=== PATIENT | female | born 1995 | race Caucasian/White ===

== ENCOUNTER 2017-10-25 09:43 | Emergency (ER) | payer OTHER ==
[2017-10-25 10:15] VITALS: BMI 22.1
--- NOTE | 2017-10-25 10:36 | PDOC ---
History of Present Illness - General Chief Complaint: Chest Pain Stated Complaint: ELEVATED BP, SOB Time Seen by Provider: 10/25/17 10:28 - History of Present Illness Initial Comments: 10/25/17 11:06 22 yo F with no significant pmh who presents with chest pain. Pt. reports substernal chest tightness beginning at 11am while at work. Pain has been slightly improving. No aggravating or inciting factors. Denies N/V, fevers/ chills, lightheadedness, weakness, vision change, abdominal pain, flank pain, diarrhea, constipation. States that she has history h/o with preganncy (2012) Patient is . BP checked at [employer] [employer] ( [facility]) this AM and elevated 175/90. Patient on Norelgestromin/ethinyl estradiol patch. Was told that HTN may be due to oral contraception patch started on (07/2017). Does not have PCP. Alcohol 2-3 cups/week, hookah 3/week. Denies marijuanna or other illicit drug use. Past History - Past Medical History Allergies/Adverse Reactions: Allergies Allergy/AdvReac Type Severity Reaction Status Date / Time No Known Allergies Allergy Verified 10/25/17 10:11 Home Medications: Ambulatory Orders Norelgestromin/Ethin.estradiol [Xulane Patch] 1 each TD ASDIR 10/25/17 COPD: No - Immunization History Immunization Up to Date: Yes - Suicide/Smoking/Psychosocial Hx Smoking Status: No Smoking History: Never smoked Have you smoked in the past 12 months: No Number of Cigarettes Smoked Daily: 0 Information on smoking cessation initiated: No Hx Alcohol Use: No Drug/Substance Use Hx: No Substance Use Type: None Review of Systems - Review of Systems Comments:: 10/25/17 10:35 GENERAL/CONSTITUTIONAL: No fever or chills. No weakness. HEAD, EYES, EARS, NOSE AND THROAT: No change in vision. No ear pain or discharge. No sore throat.- CARDIOVASCULAR:+ chest pain. No shortness of breath RESPIRATORY: No cough, wheezing, or hemoptysis. GASTROINTESTINAL: No nausea, vomiting, diarrhea or constipation. GENITOURINARY: No dysuria, frequency, or change in urination. MUSCULOSKELETAL: No joint or muscle swelling or pain. No neck or back pain. SKIN: No rash NEUROLOGIC: No headache, vertigo, loss of consciousness, or change in strength/ sensation. ENDOCRINE: No increased thirst. No abnormal weight change HEMATOLOGIC/LYMPHATIC: No anemia, easy bleeding, or history of blood clots. ALLERGIC/IMMUNOLOGIC: No hives or skin allergy. *Physical Exam - Vital Signs Last Vital Signs Temp Pulse Resp BP Pulse Ox 97.1 F L 74 18 153/103 100 10/25/17 10:12 10/25/17 10:12 10/25/17 10:12 10/25/17 10:12 10/25/17 10:12 - Physical Exam Comments: 10/25/17 10:35 GENERAL: Awake, alert, and fully oriented, in no acute distress HEAD: No signs of trauma, normocephalic, atraumatic EYES: PERRLA, EOMI, sclera anicteric, conjunctiva clear ENT: Hearing grossly normal, nares patent, oropharynx clear without exudates. Moist mucosa NECK: Normal ROM, no JVD, or masses LUNGS: No distress, speaks full sentences, clear to auscultation bilaterally HEART: Regular rate and rhythm, normal S1 and S2, no murmurs, rubs or gallops, peripheral pulses normal and equal bilaterally. ABDOMEN: Soft, substernal ttp, normoactive bowel sounds. No guarding, no rebound. No masses. Neg CVA ttp. EXTREMITIES : Normal inspection, Normal range of motion, no edema. No clubbing or cyanosis. NEUROLOGICAL: Cranial nerves II through XII grossly intact. Normal speech, normal gait, no focal sensorimotor deficits SKIN: Warm, Dry, normal turgor, no rashes or lesions noted. 10/25/17 11:46 Heart Score/ECG Review - History History: Slightly suspicious - Electrocardiogram EKG: Normal - Age Age: </= 45 - ECG Intrepretation Rhythm: Regular Rhythm - Redbird Redbird: Normal - QRS Poor R Wave Progression: No Q Wave Present: No - ST and T Early Repolarization: No Non Specific ST-T Wave changes: No Flattened T Waves: No Prolonged Q-T Interval: No - ECG Impressions Normal ECG: Yes Non-specific ST Elevation: No Ischemic Changes: No Bradycardia: No Torsades akbar Pointes: No WPW: No ED Treatment Course - LABORATORY CBC & Chemistry Diagram: 10/25/17 11:20 10/25/17 11:20 Medical Decision Making - Medical Decision Making 10/25/17 10:42 22 yo F with no significant pmh who presents with substernal chest tightness beginning at 11am while at work. Pain been slightly improving. No aggravating or inciting factors. Denies N/V, fevers/chills, lightheadedness, weakness, vision change, abdominal pain, flank pain, diarrhea, constipation. States that she has history h/o with preganncy (2012) Patient is . BP checked at [facility]/ [employer] ( [facility]) this AM and elevated 175/95. Patient on Norelgestromin/ ethinyl estradiol patch. Was told that HTN may be due to oral contraception patch started on (07/2017). Physical exam with substernal ttp. Alcohol 2-3 cups/ week, hookah 3/week. Denies marijuanna or other illicit drug use. Patient with no physical s/s of hypertensive emergency. Low suspicion for end organ damage. Although unlikely will attempt to r/o PE and obtain d-dimer d/t low risk Weils in setting of contraception use. ED Course: EKG: NSR with absent KILLIAN, STD, or TWI. CBC, CMP, Cardiac Profile, Trop, UA, Lipase 10/25/17 11:57 CBC: Unremarkable 10/25/17 12:32 CMP: Unremarkable Trop: Neg 10/25/17 13:13 TSH: Neg 10/25/17 15:54 CXR: Unremarkable. D-Dimer: 601 10/25/17 18:12 CTA: No evidence of PE Patient stable and ready for discharge with return precautions. Instructed to remove contraceptive patch. Advised to f/u with PCP. 10/25/17 15:55 *DC/Admit/Observation/Transfer Diagnosis at time of Disposition: Substernal chest pain - Discharge Dispostion Disposition: HOME Condition at time of disposition: Stable Admit: No - Referrals Referrals: Jing Fields MD [Staff Physician] - - Patient Instructions Printed Discharge Instructions: DI for Atypical Chest Pain Additional Instructions: Please return to the emergency department with any new or worsening symptoms or concerns. Please follow up with primary care physician within one week for better blood pressure control. - Post Discharge Activity - Attestations Physician Attestion: 10/25/17 14:54 I attest to the information in
[2017-10-25 11:32] LABS: BASOPHIL 0.6 % (0-2.0); EOSINOPHIL 0.6 % (0-4.5); MCH 29.2 pg (25.7-33.7); MCHC 33.1 g/dl (32.0-36.0); MEAN CELL VOLUME 88.1 fl (80-96); NEUTROPHILS 70.1 % (42.8-82.8); PLATELET COUNT 320 K/MM3 (134-434); RDW 13.2 % (11.6-15.6); WHITE BLOOD COUNT 4.7 K/mm3 (4.0-10.0)
[2017-10-25 12:00] LABS: ALBUMIN 3.8 g/dl (3.4-5.0); ANION GAP 9 (8-16); CALCIUM 8.6 mg/dL (8.5-10.1); CO2 25 mmol/L (21-32); CREATININE 0.8 mg/dL (0.55-1.02); GLUCOSE,RANDOM 81 mg/dL (74-106); SGPT/ALT 17 U/L (12-78)
[2017-10-25 12:02] LABS: INR 1.18 (0.82-1.09); PROTHROMBIN TIME (PATIENT) 13.3 SEC (9.98-11.88)
[2017-10-25 12:04] LABS: ALK PHOS 57 U/L (45-117); BILIRUBIN,TOTAL 0.8 mg/dL (0.2-1.0); CPK 117 IU/L (26-192); TOT PROT 7.8 g/dl (6.4-8.2); TROPONIN I < 0.02 ng/ml (0.00-0.05)
[2017-10-25 12:09] LABS: SGOT/AST 17 U/L (15-37)
--- NOTE | 2017-10-25 12:16 | EKG ---
Test Reason : Blood Pressure : / mmHG Vent. Rate : 083 BPM Atrial Rate : 083 BPM P-R Int : 140 ms QRS Dur : 080 ms QT Int : 378 ms P-R-T Axes : 029 055 022 degrees QTc Int : 444 ms NORMAL SINUS RHYTHM SEPTAL INFARCT , AGE UNDETERMINED ABNORMAL ECG NO PREVIOUS ECGS AVAILABLE Confirmed by YOLANDA SMITH MD ([id number]) on 10/25/2017 12:16:01 PM Referred By: Confirmed By:YOLANDA SMITH MD
[2017-10-25 12:19] LABS: PH,URINE 6.5 (5.0-8.0); URINE APPEARANCE CLEAR; URINE BILIRUBIN NEGATIVE (NEGATIVE); URINE BLOOD NEGATIVE (NEGATIVE); URINE GLUCOSE (UA) NEGATIVE (NEGATIVE); URINE KETONE 2+ (NEGATIVE); URINE NITRITE NEGATIVE (NEGATIVE)
[2017-10-25 12:46] LABS: URINE COLOR YELLOW; URINE PROTEIN 1+ (NEGATIVE)
[2017-10-25 13:00] LABS: THYROID STIMULATING HORMONE 1.03 uIU/ml (0.358-3.74)
[2017-10-25 13:23] LABS: URINE HYALINE CAST 1 /lpf; URINE MUCUS FEW; URINE RBC 1 /hpf (0-3); URINE WBC 3 /hpf (3-5)
--- NOTE | 2017-10-25 13:59 | PDOC ---
Attending Attestation - Resident Resident Name: Damian Conner - ED Attending Attestation I have performed the following: I have examined & evaluated the patient, The case was reviewed & discussed with the resident, I agree w/resident's findings & plan, Exceptions are as noted - HPI HPI: 10/25/17 13:54 Healthy 22-year-old female with no significant past medical history presents now for evaluation in the setting of elevated blood pressure and chest pain intermittently for 1-2 days. No known history of elevated blood pressure, does report on occasion that she gets dyspnea with exertion, but no foreign exchange dealer the last year and denies any recent PE risk factors or symptoms of DVT. Positive history of early hypertension in her family, no history of sudden cardiac . Never had an echo or stress test for any reason. - Physicial Exam PE: 10/25/17 13:56 Blood pressure 160 systolic, heart rate normal. Normal exam, no audible murmur No edema or calf tenderness - Medical Decision Making 10/25/17 13:57 Patient seen and evaluated with the resident. I agree with the overall evaluation, assessment, and management with the following summary of visit: 22-year-old female presents with newly elevated blood pressures and otherwise atypical chest pain intermittently since yesterday. Patient is symptom-free at this time, blood pressure is 160 systolic. Patient exertional symptoms have been ongoing for about a year, are stable and unchanged. EKG shows possible septal Q waves and questionable LVH, no acute ischemic changes. We'll perform a complete workup to rule out evidence of end organ injury or heart strain. If above is within normal limits and the patient remains asymptomatic, she was given a referral to a [facility] physician and will arrange follow-up within the next 48 hours. Check d-dimer and chest x-ray Reassess and dispo accordingly 10/25/17 15:28 labs wnl, trop negative. cxr normal but ddimer positive. cta chest to r/o PE or dissection. BP otherwise stable Heart Score/ECG Review #1 General ECG Interpretation: Sinus Rhythm, Normal Rate, Normal Intervals (? LVH) , No acute ischemic changes (septal q waves)
[2017-10-25] MEDS ORDERED: SODIUM CHLORIDE 1,000 ML IV ONE (15:27)
[2017-10-25 18:25] VITALS: BP 143/82; PULSE 87; TEMP 97.5
[2017-10-25 18:58] LABS: URINE LEUK ESTERASE Negative (NEGATIVE)
== END 2017-10-25 18:30 | disposition home or self-care (01) ==
LOC: JER 09:43
PROC: 3E0337Z Introduction of Electrolytic and Water Balance Substance into Peripheral Vein, Percutaneous Approach (ICD-10-PCS; principal; 2017-10-25)
DX: R07.89 Other chest pain (principal); I10 Essential (primary) hypertension
CPT/HCPCS: 36415; 71020-TC; 71275-TC; 80053; 81003; 81015; 82550; 83690; 84443; 84484; 84703; 85025; 85379; 85610; 93005; 93010; 96360; 99285-25

== ENCOUNTER 2018-09-13 16:55 | Emergency (ER) | payer SELFPAY ==
[2018-09-13 17:07] VITALS: BMI 24.7
--- NOTE | 2018-09-13 17:07 | PDOC ---
Rapid Medical Evaluation Time Seen by Provider: 09/13/18 17:03 Medical Evaluation: Allergies Allergy/AdvReac Type Severity Reaction Status Date / Time No Known Allergies Allergy Verified 09/13/18 17:03 09/13/18 17:03 Pt c/o:this morning excessive crying and wanted to hurt herself ( no plan), no hx of depression, continues to feel sad, here with grandmother, son , and 2 week old baby, went to heart nurse and referred here for eval Pt on brief exam: + eye contact, states no feeling/thoughts of hurting herself now Pt ordered for: psych eval pt to proceed to the ED: Discharge Disposition - Diagnosis Post- depression - Referrals - Patient Instructions - Post Discharge Activity
--- NOTE | 2018-09-13 17:52 | PDOC ---
History of Present Illness - General Chief Complaint: Suicidal Stated Complaint: EVALUATION Time Seen by Provider: 09/13/18 17:03 - History of Present Illness Initial Comments: 23 year 3 week post old previously healthy female presenting because of near attempt at self harm today. Patient states that she has been having a rough time with her living situation and has been under a lot of stress at home since the of her child. Because of these stressors she has felt very sad today in particular and was thinking about hurting herself with a knife. Patient admits that she had a knife in her room and wanted to cut her arm without a clear goal. Her baby's father came into the room and grabbed the knife from her then called EMS to have her evaluated. Patient currently states that she is fine but when asked if she would attempt this again, she stats she is not sure but that it is a possibility. Denies any previous attempt or previous psychiatric diagnoses. Denies HI, AH< or VH. Denies any other sick symptoms. Her living situation is tenuous because her parents are being evicted and she needs to find alternate housing and her two children. Also the father of her is not very involved with the care of the child. There has been a lot of arguing and verbal fighting between all of these mentioned parties. 09/13/18 23:12 Past History - Past Medical History Allergies/Adverse Reactions: Allergies Allergy/AdvReac Type Severity Reaction Status Date / Time No Known Allergies Allergy Verified 09/13/18 17:03 Home Medications: Ambulatory Orders NK [No Known Home Medication] 09/13/18 COPD: No - Immunization History Immunization Up to Date: Yes - Suicide/Smoking/Psychosocial Hx Smoking Status: No Smoking History: Never smoked Have you smoked in the past 12 months: No Number of Cigarettes Smoked Daily: 0 Hx Alcohol Use: No Drug/Substance Use Hx: No Substance Use Type: None Review of Systems - Review of Systems Constitutional: No: Chills, Diaphoresis, Fever HEENTM: No: Eye Pain, Blurred Vision Respiratory: No: Cough, Shortness of Breath Cardiac (ROS): No: Chest Pain, Lightheadedness, Syncope, Chest Tightness ABD/GI: No: Diarrhea, Nausea, Poor Appetite, Vomiting : No: Burning, Dysuria, Discharge Musculoskeletal: No: Back Pain, Joint Pain, Joint Swelling Integumentary: No: Bruising, Erythema, Flushing, Lesions Neurological: No: Headache, Numbness, Seizure Psychiatric: No: Anxiety, Depression Endocrine: No: Excessive Sweating, Flushing, Increased Thirst Hematologic/Lymphatic: No: Anemia, Blood Clots, Easy Bleeding *Physical Exam - Vital Signs Last Vital Signs Temp Pulse Resp BP Pulse Ox 98.2 F 86 14 137/93 100 09/13/18 17:04 09/13/18 17:04 09/13/18 17:04 09/13/18 17:04 09/13/18 17:04 - Physical Exam General Appearance: Yes: Nourished, Appropriately Dressed. No: Apparent Distress HEENT: positive: EOMI, BETY, Normal ENT Inspection, Normal Voice Neck: positive: Trachea midline, Normal Thyroid, Supple. negative: Tender, Rigid Respiratory/Chest: positive: Lungs Clear, Normal Breath Sounds. negative: Chest Tender, Respiratory Distress, Accessory Muscle Use Cardiovascular: positive: Regular Rhythm, Regular Rate Gastrointestinal/Abdominal: positive: Normal Bowel Sounds, Flat, Soft. negative : Tender Lymphatic: negative: Adenopathy, Tenderness Musculoskeletal: positive: Normal Inspection. negative: Decreased Range of Motion Extremity: positive: Normal Capillary Refill, Normal Inspection, Normal Range of Motion. negative: Tender Integumentary: positive: Normal Color, Dry, Warm Neurologic: positive: ton cylinder inspector II-XII NML intact, Fully Oriented, Alert, Normal Mood/ Affect, Normal Response, Motor Strength 5/5 ED Treatment Course - LABORATORY CBC & Chemistry Diagram: 09/13/18 17:19 09/13/18 17:19 Medical Decision Making - Medical Decision Making 23 year old female with what appears to be a plan with near attempt at self harm without clear goal. Patient is within the time frame for depression and her admitted behavior is concerning for suicidality. Patient needs to be evaluated by psychiatry for her self harm behavior. Spoke to patient and her family at length including her father, mother, and baby's father. They eventually found care for her two children and her mother will come to visit her and bring Kenny. Denies current AH/VH/ HI. Spoke to Dr. Calderon at approximately 18:00 and he will see her in the morning. Basic labs, EKG, and drug levels sent. 09/13/18 20:19 Patient signed out to Dr. Conner in stable condition pending psych evaluation. *DC/Admit/Observation/Transfer Diagnosis at time of Disposition: Post- depression - Discharge Dispostion Condition at time of disposition: Stable - Referrals - Patient Instructions Printed Discharge Instructions: DI for Suicidal Ideation-Adult Additional Instructions: Please return to the emergency department with any new or worsening symptoms or concerns. Please follow up with your primary care physician within 72 hours. - Post Discharge Activity Forms/Work/School Notes: My Personal Safety Plan
[2018-09-13 18:04] LABS: BASO % 0.4 % (0-2.0); EOS % 0.3 % (0-4.5); HEMATOCRIT 34.3 % (32.4-45.2); HEMOGLOBIN 11.1 GM/dL (10.7-15.3); MCH 29.1 pg (25.7-33.7); MCHC 32.4 g/dl (32.0-36.0); MEAN CELL VOLUME 89.8 fl (80-96); MEAN PLT VOLUME 7.4 fl (7.5-11.1); MONO % 5.8 % (3.8-10.2); NEUT % 71.5 % (42.8-82.8); PLATELET COUNT 406 K/MM3 (134-434); RBC 3.82 M/mm3 (3.60-5.2); RDW 14.3 % (11.6-15.6); WHITE BLOOD COUNT 5.6 K/mm3 (4.0-10.0)
[2018-09-13 18:33] LABS: ALBUMIN 3.9 g/dl (3.4-5.0); ALK PHOS 92 U/L (45-117); ANION GAP 9 MMOL/L (8-16); BILIRUBIN,TOTAL 0.3 mg/dL (0.2-1); BLOOD UREA NITROGEN 11 mg/dL (7-18); CALCIUM 9.3 mg/dL (8.5-10.1); CHLORIDE 107 mmol/L (98-107); CO2 26 mmol/L (21-32); CREATININE 0.8 mg/dL (0.55-1.3); GLUCOSE,RANDOM 78 mg/dL (74-106); POTASSIUM 3.4 mmol/L (3.5-5.1); SGOT/AST 18 U/L (15-37); SGPT/ALT 21 U/L (13-61); SODIUM 141 mmol/L (136-145)
--- NOTE | 2018-09-13 18:46 | PDOC ---
Attending Attestation - Resident Resident Name: Jevon Cifuentes - ED Attending Attestation I have performed the following: I have examined & evaluated the patient, The case was reviewed & discussed with the resident, I agree w/resident's findings & plan, Exceptions are as noted - HPI HPI: 09/13/18 18:47 The patient is a 23 year old female with no significant PMH who presents to the emergency department with s/p suicidal attempt earlier today. Patient states this morning she was crying excessively and wanted to hurt herself with a knife. Patients partner had to take the knife out of her hand. Patient is currently 2-weeks and had another kid at home. Patient denies any suicidal or homicidal ideation in the past. Denies history of depression. Patient wants to leave the ER prior to psych eval. Denies ingestions. States she feels safe at home and denies any abuse by her partner or anyone else. The patient denies chest pain, shortness of breath, headache and dizziness. Denies fever, chills, nausea, vomit, diarrhea and constipation. Denies dysuria, frequency, urgency and hematuria. Allergies: NKA Past surgical history: None reported. Social history: No reported alcohol, drug, or cigarette use. - Physicial Exam PE: 09/13/18 18:48 GENERAL: Awake, alert, and fully oriented, in no acute distress, agitated but redirectable HEAD: No signs of trauma EYES: PERRLA, EOMI, sclera anicteric, conjunctiva clear ENT: Auricles normal inspection, hearing grossly normal, nares patent, oropharynx clear without exudates. Moist mucosa NECK: Normal ROM, supple, no lymphadenopathy, JVD, or masses LUNGS: Breath sounds equal, clear to auscultation bilaterally. No wheezes, and no crackles HEART: Regular rate and rhythm, normal S1 and S2, no murmurs, rubs or gallops ABDOMEN: Soft, nontender, normoactive bowel sounds. No guarding, no rebound. No masses EXTREMITIES: Normal range of motion, no edema. No clubbing or cyanosis. No cords, erythema, or tenderness NEUROLOGICAL: Normal speech, cranial nerves intact, 5/5 strength in all 4 extremities, normal sensation to light touch in all 4 extremities, normal cerebellar exam, normal gait, normal tone SKIN: Warm, Dry, normal turgor, no rashes or lesions noted. - Medical Decision Making 09/13/18 18:42 23yo F with no significant past medical or psychiatric history, 2 weeks post- presents to the ED with suicidal thoughts. Pt held a knife earlier today that was removed by her partner. Pt currently trying to leave ED, states she is not suicidal. When asked if she could hurt herself at home if she is discharged , she states "I don't know." Pt is on security watch. Will check labs, UA, EKG, and c/s psych. Per Dr. Ayala, he can not see pt until gail AM. 09/13/18 19:00 Labs, UA, EKG pending Pt cooperative for now Continues to be on security watch Signed out to overnight attending for f/u on diagnostics and dispo
--- NOTE | 2018-09-13 20:34 | PDOC ---
*Physical Exam - Vital Signs Last Vital Signs Temp Pulse Resp BP Pulse Ox 98.2 F 86 14 137/93 100 09/13/18 17:04 09/13/18 17:04 09/13/18 17:04 09/13/18 17:04 09/13/18 17:04 - Physical Exam Comments: 09/13/18 20:39 GENERAL: Awake, alert, and fully oriented, in no acute distress HEAD: No signs of trauma, normocephalic, atraumatic EYES: PERRLA, EOMI, sclera anicteric, conjunctiva clear ENT: Auricles normal inspection, hearing grossly normal, nares patent, oropharynx clear without exudates. Moist mucosa NECK: Normal ROM, supple, no lymphadenopathy, JVD, or masses LUNGS: No distress, speaks full sentences, clear to auscultation bilaterally HEART: Regular rate and rhythm, normal S1 and S2, no murmurs, rubs or gallops, peripheral pulses normal and equal bilaterally. ABDOMEN: Soft, nontender, normoactive bowel sounds. No guarding, no rebound. No masses EXTREMITIES : Normal inspection, Normal range of motion, no edema. No clubbing or cyanosis. NEUROLOGICAL: Cranial nerves II through XII grossly intact. Normal speech, normal gait, no focal sensorimotor deficits SKIN: Warm, Dry, normal turgor, no rashes or lesions noted ED Treatment Course - LABORATORY CBC & Chemistry Diagram: 09/13/18 17:19 09/13/18 17:19 - ADDITIONAL ORDERS Additional order review: Laboratory Results 09/13/18 09/13/18 17:19 15:02 Sodium 141 Potassium 3.4 L Chloride 107 Carbon Dioxide 26 Anion Gap 9 BUN 11 Creatinine 0.8 Creat Clearance w eGFR > 60 Random Glucose 78 Calcium 9.3 Total Bilirubin 0.3 AST 18 ALT 21 Alkaline Phosphatase 92 Total Protein 8.0 Albumin 3.9 TSH 2.21 Salicylates < 1.7 L Acetaminophen < 10 L 09/13/18 17:19 RBC 3.82 MCV 89.8 MCHC 32.4 RDW 14.3 MPV 7.4 L Neutrophils % 71.5 Lymphocytes % 22.0 Monocytes % 5.8 Eosinophils % 0.3 Basophils % 0.4 Medical Decision Making - Medical Decision Making 09/13/18 20:30 23 yo F 2 weeks who p/w suicide attempt early today. No h/o prior SI or HI. VSS, AF. Received signout from Dr. Cifuentes. Patient states that she feels she will harm herself at home. Pt. is security each, pending psych consult/eval in morning Dr. Ayala. ED course notable for unremarkable lab evaluation. ED Course: 09/13/18 20:40 Patient stable in room with with 1 on 1 sitter. Has not attempted self injury or displayed harmful/violent behavior since observed in ED. *DC/Admit/Observation/Transfer Diagnosis at time of Disposition: Post- depression - Discharge Dispostion Condition at time of disposition: Stable - Referrals - Patient Instructions Printed Discharge Instructions: DI for Suicidal Ideation-Adult Additional Instructions: Please return to the emergency department with any new or worsening symptoms or concerns. Please follow up with your primary care physician within 72 hours. - Post Discharge Activity Forms/Work/School Notes: My Personal Safety Plan - Attestations Physician Attestion: 09/13/18 20:39 I attest to the information provided in this note.
[2018-09-13] MEDS ORDERED: ACETAMINOPHEN 325 MG TABLET (FP) PO ONE (21:13)
[2018-09-13] MEDS ORDERED: ACETAMINOPHEN 325 MG TABLET (FP) ONE (21:28)
--- NOTE | 2018-09-14 08:44 | CON.PSY ---
Psychiatry Consult Chief Complaint: 23 year old woman 3 weeks Post brought to ER my mother following an argument with her currant boyfriend, she apparatly pivcked up a knife to hurt herself but decided to call her mom who byought her here. Patient never tried to hurt her 3 week old baby or 5 year old Son. Patoient said, I love my baby, i would never hurt her or my SOn. Its a problem wity my boyfriend and our living situation, Iwe live wity my DAd/ thats difficult. patient had seen a therapist eith her mom when she was 15yrs old improve her relationship with her. 3 week pld baby is with her Biological Father and his MOM. Symptoms: reports: Depressed Mood - Previous Psychiatric Treatment Outpatient: More than 6 mos ago Inpatient: None - Previous Substance Abuse Treatment Outpatient: None Inpatient: None - Allergies Allergies: Allergies Allergy/AdvReac Type Severity Reaction Status Date / Time No Known Allergies Allergy Verified 09/13/18 17:03 - Current Living Status Usual Living Arrangement: With Parent - Current Mental Status Evaluation Appearance: Well Groomed Attitude: Cooperative - Affect Affect: Full Range Appropriateness: Appropriate to Content - Mood Mood: Anxious - Speech/Language Expressive: Coherent - Psychomotor Activity Psychomotor Activity: Normal - Thought Process Thought Process: Intact - Thought Content Hallucinations: Absent Delusions: Absent - Self Perception Self Perception: No Impairment - Cognition Attention: Alert Orientation: Time Memory, Immediate Recall: Intact Memory, Short Term: 3/3 Memory, Remote with Promptin/3 - Concentration Serial Sevens Intact: Yes Simple Calculations Intact: Yes - Abstraction Proverb Interpretation: Intact Judgement: Minimally Impaired - Insight Insight: Intact - Impulse Control Impulse Control: Minimally Impaired - Suicidal Ideation Suicidal Ideation: No - Homicidal Ideation Homicidal Ideation: No Assessment/Plan 1) Patient is not depressed or suicidal or Homicidal at this time. 2) No need for Psych Hospitalization or Medications at this ramiro,e, 3) vp digital marketing social media and crm to refer patient for Therapy and support services. ?CPS. 4) Refer patient to Child Protective Services.
[2018-09-14 08:45] VITALS: BP 145/99; PULSE 70; TEMP 98.3
--- NOTE | 2018-09-14 09:21 | EKG ---
Test Reason : Blood Pressure : / mmHG Vent. Rate : 065 BPM Atrial Rate : 065 BPM P-R Int : 180 ms QRS Dur : 090 ms QT Int : 442 ms P-R-T Axes : 070 064 051 degrees QTc Int : 459 ms NORMAL SINUS RHYTHM SEPTAL INFARCT (CITED ON OR BEFORE 25-OCT-2017) ABNORMAL ECG WHEN COMPARED WITH ECG OF 25-OCT-2017 10:29, NO SIGNIFICANT CHANGE WAS FOUND Confirmed by JUAN MALDONADO, MEGAN ([id number]) on 09/14/2018 9:20:59 AM Referred By: Confirmed By:MEGAN MARTINEZ MD
--- NOTE | 2018-09-14 10:01 | PDOC ---
*Physical Exam - Vital Signs Last Vital Signs Temp Pulse Resp BP Pulse Ox 98.3 F 70 18 145/99 100 09/14/18 08:45 09/14/18 08:45 09/14/18 08:45 09/14/18 08:45 09/14/18 08:45 - Physical Exam General Appearance: Yes: Appropriately Dressed ED Treatment Course - LABORATORY CBC & Chemistry Diagram: 09/13/18 17:19 09/13/18 17:19 - ADDITIONAL ORDERS Additional order review: 09/13/18 17:19 RBC 3.82 MCV 89.8 MCHC 32.4 RDW 14.3 MPV 7.4 L Neutrophils % 71.5 Lymphocytes % 22.0 Monocytes % 5.8 Eosinophils % 0.3 Basophils % 0.4 - Medications Given in the ED: ED Medications Discontinued Medications Generic Name Dose Route Start Last Admin Trade Name Jenny PRN Reason Stop Dose Admin Acetaminophen 650 mg 09/13/18 21:13 09/13/18 21:29 Tylenol - PO 09/13/18 21:14 650 mg ONCE ONE Administration Medical Decision Making - Medical Decision Making 09/14/18 09:59 Patient medically cleared by overnight attending. Patient seen and cleared by psychiatric attending this morning. Reevaluation 10 AM patient not suicidal or homicidal denies any auditory or visual hallucinations Psychiatry social professionals both consult on the patient. case management social worker is calling child protective services see social professionals note. Findings, the need for follow-up and strict return instructions discussed with patient. *DC/Admit/Observation/Transfer Diagnosis at time of Disposition: Post- depression - Discharge Dispostion Condition at time of disposition: Stable Decision to Admit order: No - Referrals - Patient Instructions Printed Discharge Instructions: DI for Suicidal Ideation-Adult Additional Instructions: Please return to the emergency department with any new or worsening symptoms or concerns. Please follow up with your primary care physician within 72 hours. Please also follow-up with the health services provided to by our emergency department social professionals - Post Discharge Activity Forms/Work/School Notes: My Personal Safety Plan
== END 2018-09-14 10:30 | disposition home or self-care (01) ==
LOC: JER 16:55
DX: F53.0 Postpartum depression (principal)
CPT/HCPCS: 36415; 80053; 80307; 84443; 85025; 93005; 93010; 99283-25